=== PATIENT | female | born 1950 | race Two or more races ===

== ENCOUNTER 2025-04-06 10:42 | Emergency (ER) | payer OTHER ==
[~2025-04-06] VITALS: Ht 144.8 cm; Wt 44.5 kg
[2025-04-06] MEDS ORDERED: CARVEDILOL3.125 M1 (11:19)
[2025-04-06] MEDS ORDERED: CHILDREN'S ASPI81 MG (11:19)
[2025-04-06] MEDS ORDERED: CALCIUM500 M2 (11:20)
[2025-04-06] MEDS ORDERED: LEVALBUTEROL HCL 0.63 MG/3 ML SOLUTION IH SCH (11:45)
[2025-04-06] MEDS ORDERED: METHYLPREDNISOLONE SOD SUCC 125 MG VIAL IV ONE (11:45)
[2025-04-06 12:17] LABS: BASO % 0.1 % (0.1-1.2); EOS # 0.16 (0.04-0.54); EOS % 2.0 % (0.7-7.0); LYMPH # 1.43 (1.18-3.74); LYMPH % 18.1 % (19.3-53.1); MEAN PLATELET VOLUME 10.30 fl (9.4-12.4); MONO # 1.20 (0.24-0.82); NEUT # 5.06 (1.56-6.13); NEUT % 64.1 % (34.0-71.1); RED CELL DISTRIBUTION WIDTH 15.5 % (11.6-14.4)
[2025-04-06 12:19] LABS: MONO % 15.2 % (4.7-12.5)
[2025-04-06 12:38] LABS: ABG PH 7.514 (7.35-7.45)
[2025-04-06 12:39] LABS: ABG PO2 85.7 mmHg (80-100); BICARBONATE 30.1 mmol/l (23-25); o2 21 %
[2025-04-06 13:04] LABS: COVID-19 AG NEGATIVE (NEGATIVE)
[2025-04-06] MEDS ORDERED: HYDROCODONE/CHLORPHEN P-STIREX 5 ML ML PO ONE (15:00)
== END 2025-04-06 15:12 | disposition home or self-care (01) ==
LOC: ER 10:42
PROVIDERS: Emergency Medicine
DX: J45.909 Unspecified asthma, uncomplicated (principal); I12.0 Hypertensive chronic kidney disease with stage 5 chronic kidney disease or end stage renal disease; N18.6 End stage renal disease; Z99.2 Dependence on renal dialysis; Z20.822 Contact with and (suspected) exposure to COVID-19; J44.9 Chronic obstructive pulmonary disease, unspecified